=== PATIENT | female | born 1935 | race Hispanic/Latino ===

== ENCOUNTER → 2018-07-28 | Day surgery (SDC) | payer MEDICARE ==
[~2018-07-28] MED LIST: BENZONATATE100 MG PO; HYDROXYZINE HCL10 MG PO; MIDAZOLAM HCL 2 MG/2 ML VIAL ONE; OR PHACO EYE KIT ONE; PREOP PHACO EYE KIT ONE
[2018-07-28 12:35] VITALS: BP 143/69
== END | disposition home or self-care (01) ==
LOC: OR 09:30
PROVIDERS: ATTEND Ophthalmology
DX: H25.11 Age-related nuclear cataract, right eye (principal); M25.462 Effusion, left knee; N18.3 Chronic kidney disease, stage 3 (moderate); R73.03 Prediabetes; F41.9 Anxiety disorder, unspecified; Z88.6 Allergy status to analgesic agent; Z88.0 Allergy status to penicillin
CPT/HCPCS: 66984; J2250

== ENCOUNTER → 2018-08-11 | Day surgery (SDC) | payer MEDICARE ==
[2018-08-11 11:05] VITALS: BP 145/63
== END | disposition home or self-care (01) ==
LOC: OR 07:29
PROVIDERS: ATTEND Ophthalmology
DX: H25.12 Age-related nuclear cataract, left eye (principal); I45.10 Unspecified right bundle-branch block; R73.03 Prediabetes; N18.9 Chronic kidney disease, unspecified; F41.9 Anxiety disorder, unspecified; Z88.6 Allergy status to analgesic agent; Z88.0 Allergy status to penicillin
CPT/HCPCS: 66984; J2250; V2632